=== PATIENT | female | born 1985 | race Caucasian/White ===

== ENCOUNTER 2018-02-24 00:16 | Inpatient (IN) | payer BC ==
[2018-02-24] MEDS ORDERED: Nalbuphine 10 MG/1 ML Vial IVPUSH PRN (00:54)
[2018-02-24] MEDS ORDERED: Sodium Chloride 0.9% 2.5 ML Syringe FLUSH PRN (00:54)
[2018-02-24] MEDS ORDERED: Methylergonovine 0.2 MG/1 ML Amp IM PRN ×2 (00:54→14:18)
[2018-02-24] MEDS ORDERED: Terbutaline 1 MG/ML SDV SUBCUT PRN (00:54)
[2018-02-24] MEDS ORDERED: Lidocaine 1% 50 ML MDV INJECT PRN (00:54)
[2018-02-24] MEDS ORDERED: Carboprost Tromethamine 250 MCG/1 ML Amp IM PRN (00:54)
[2018-02-24] MEDS ORDERED: Water For Irrigation,Sterile 1,000 ML Container IRR PRN (00:54)
[2018-02-24] MEDS ORDERED: Butorphanol 1 MG/ML SDV IVPUSH PRN (00:54)
[2018-02-24] MEDS ORDERED: Sodium Chloride 0.9% 10 ML Syringe FLUSH PRN (00:54)
[2018-02-24] MEDS ORDERED: Tranexamic Acid 1,000 MG in Sodium Chloride 0.9% 100 ML IV PRN (00:54)
[2018-02-24] MEDS ORDERED: Misoprostol 200 MCG Tab PO PRN (00:54)
[2018-02-24] MEDS ORDERED: Oxytocin/0.9 % Sodium Chloride 30 UNIT/500 ML BAG IV SCH ×2 (01:00)
[2018-02-24] MEDS: Lactated Ringers 1,000 ML IV SCH ×2 (01:17→13:49)
[2018-02-24] MEDS: Misoprostol 25 MCG (1/4 of 100 MCG) Tab VAG PRN ×2 (01:30→07:39)
--- NOTE | 2018-02-24 13:07 | PCM.PREANE ---
Preanesthetic Assessment - Anesthesia/Transfusion/Family Hx Anesthesia History: Prior Anesthesia Without Reaction Transfusion History: No Prior Transfusion(s) - Physical Assessment Height: 1.68 m Weight: 107.955 kg ASA Class: 1 - Lab Values: Laboratory Last Values WBC 11.17 K/uL (4.0-11.0) H 02/24/18 01:10 RBC 4.02 M/uL (4.30-5.90) L 02/24/18 01:10 Hgb 11.6 g/dL (12.0-16.0) L 02/24/18 01:10 Hct 34.7 % (36.0-46.0) L 02/24/18 01:10 MCV 86.3 fL (80.0-98.0) 02/24/18 01:10 MCH 28.9 pg (27.0-32.0) 02/24/18 01:10 MCHC 33.4 g/dL (31.0-37.0) 02/24/18 01:10 RDW Std Deviation 41.8 fl (28.0-62.0) 02/24/18 01:10 RDW Coeff of Bell 14 % (11.0-15.0) 02/24/18 01:10 Plt Count 170 K/uL (150-400) 02/24/18 01:10 MPV 10.20 fL (7.40-12.00) 02/24/18 01:10 POC Glucose 74 mg/dL (60-110) 02/24/18 09:59 Blood Type A POSITIVE 02/24/18 01:10 Antibody Screen NEGATIVE 02/24/18 01:10 - Allergies Allergies/Adverse Reactions: Allergies Allergy/AdvReac Type Severity Reaction Status Date / Time No Known Allergies Allergy Verified 09/30/16 11:51 - Acknowledgements Anesthesia Type Planned: Epidural Pt an Appropriate Candidate for the Planned Anesthesia: Yes Alternatives and Risks of Anesthesia Discussed w Pt/Guardian: Yes Pt/Guardian Understands and Agrees with Anesthesia Plan: Yes PreAnesthesia Questionnaire HEENT History: Reports: Other (See Below) Other HEENT History: wears glasses/contacts Gastrointestinal History: Reports: GERD EDUCATION NURSE History: Reports: Endometriosis, , Other (See Below) Psychiatric History: Reports: Depression Endocrine/Metabolic History: Reports: Obesity/BMI 30+ - Past Surgical History Head Surgeries/Procedures: Reports: None - SUBSTANCE USE Smoking Status *Q: Never Smoker Second Hand Smoke Exposure: No Recreational Drug Use History: No - HOME MEDS Home Medications: Home Meds Acetaminophen/oxyCODONE [Percocet 325-5 MG] 1 tab PO Q4H PRN #20 tablet [Rx] - CURRENT (IN HOUSE) MEDS Current Meds: Current Medications Butorphanol Tartrate (Stadol) 1 mg IVPUSH ASDIRECTED PRN PRN Reason: Pain Carboprost Tromethamine (Hemabate Ds) 250 mcg IM ASDIRECTED PRN PRN Reason: Post Hemorrhage Lactated Ringer's (Ringers, Lactated) 1,000 mls @ 150 mls/hr IV ASDIRECTED JULIEN Last Admin: 02/24/18 01:17 Dose: 150 mls/hr Oxytocin/Sodium Chloride (Oxytocin 30 Unit/500 Ml-Ns) 30 unit in 500 mls @ 999 mls/hr IV ASDIRECTED JULIEN Oxytocin/Sodium Chloride (Oxytocin 30 Unit/500 Ml-Ns) 30 unit in 500 mls @ 2 mls/hr IV TITRATE JULIEN; Protocol Last Titration: 02/24/18 12:12 Dose: 4 munits/min, 4 mls/hr Tranexamic Acid 1,000 mg/ (Sodium Chloride) 110 mls @ 660 mls/hr IV ONETIME PRN PRN Reason: Bleeding Lidocaine HCl (Xylocaine 1%) 50 ml INJECT .ONCE PRN PRN Reason: Laceration repair Methylergonovine Maleate (Methergine) 0.2 mg IM ASDIRECTED PRN PRN Reason: Post Hemorrhage Misoprostol (Cytotec) 200 mcg PO .ONCE PRN PRN Reason: Post Hemorrhage Misoprostol (Cytotec) 25 mcg VAG Q6H PRN PRN Reason: Cervical Ripening Last Admin: 02/24/18 07:39 Dose: 25 mcg Nalbuphine HCl (Nubain) 10 mg IVPUSH ASDIRECTED PRN PRN Reason: Pain (severe 7-10) Sodium Chloride (Saline Flush) 10 ml FLUSH ASDIRECTED PRN PRN Reason: Keep Vein Open Sodium Chloride (Saline Flush) 2.5 ml FLUSH ASDIRECTED PRN PRN Reason: Keep Vein Open Sterile Water (Sterile Water For Irrigation) 1,000 ml IRR ASDIRECTED PRN PRN Reason: delivery Terbutaline Sulfate (Brethine) 0.25 mg SUBCUT ASDIRECTED PRN PRN Reason: Tacysystole Discontinued Medications Fentanyl/Bupivacaine HCl (Sbdmzimr-Poncb-Pt 2 Mcg/Ml-0.125%) Confirm Administered Dose 100 mls @ as directed [facility] Stop: 02/24/18 12:29
--- NOTE | 2018-02-24 13:10 | PCM.PRNOTE ---
- Free Text/Narrative Note: Anes Note Patient requests epidural for L&D. Risks and methods were discussed. Sitting position. Bet prep X 3. Level L3-L4, midline approach. Local 1% lido. Single attempt with ease using CALLI technique. Cath threaded 3 cm with ease. Sterile dressing applied. Test dose 3 cc 1.5 lido with epi negative. Load: 10 cc pump solution in slow divided doses. Pump started at 8 cc/hr with 6 cc q 20 min prn bolus. Patient reports excellent analgesia. Sean Noriega CRNA
[2018-02-24] MEDS ORDERED: Bisacodyl 10 MG Supp RECTAL PRN (14:18)
[2018-02-24] MEDS ORDERED: oxyCODONE 5 MG Tab PO PRN (14:18)
[2018-02-24] MEDS ORDERED: Witch Hazel Medicated Pads 40/Jar TOP PRN (14:18)
[2018-02-24] MEDS ORDERED: Lanolin 100% Cream 7 GM Tube TOP PRN (14:18)
[2018-02-24] MEDS ORDERED: Ibuprofen 400 MG Tab PO PRN (14:18)
[2018-02-24] MEDS ORDERED: Acetaminophen 500 MG Tab PO PRN (14:18)
[2018-02-24] MEDS ORDERED: Benzocaine/Menthol 20%-0.5% Spray 78 GM Cannister TOP PRN (14:18)
[2018-02-24] MEDS ORDERED: Docusate Sodium 100 MG Cap PO PRN (14:18)
[2018-02-24] MEDS: Ibuprofen 800 MG Tab PO PRN (19:40)
--- NOTE | 2018-02-24 21:03 | OR ---
SURGEON: Monica Murphy M.D. DATE OF PROCEDURE: 02/24/2018 PREOPERATIVE DIAGNOSES: A 39-week intrauterine , gestational diabetes mellitus type A2, suspected macrosomia. POSTOPERATIVE DIAGNOSES: A 39-week intrauterine , gestational diabetes mellitus type A2, suspected macrosomia. PROCEDURE: Cytotec and Pitocin induction of labor, term spontaneous vaginal delivery. EVIDENCE SPECIALIST: CYDNEY Art. ANESTHESIA: Epidural. ESTIMATED BLOOD LOSS: Less than 300 mL. FINDINGS: Live born male, scores 9 and 9, weighing 3990 g. Placenta spontaneous, Schultze intact, with 3 vessels. Marginal cord insertion was noted. COMPLICATIONS: None known. DISPOSITION: Mother and baby are in LDRP in good condition. BRIEF HISTORY: This is a 32-year-old female, G3, P 2-0-0-2. She is a gestational diabetic, which has been well controlled with low-dose insulin in the evenings only and she has had otherwise uncomplicated care. She presents for induction of labor. Estimated weight of 4110 g. She had an unfavorable Palafox score. She received 2 doses of Cytotec. Following this, she was 3-4 cm dilated. She was started on Pitocin. She received an epidural for pain control. She was group B strep negative. Artificial rupture of membranes was performed with copious clear fluid noted and she had overall category 1 heart tones throughout labor except for a prolonged deceleration immediately following epidural, which resolved with shutting off the Pitocin and IV hydration. Pitocin was then re-initiated and the heart tones remained reassuring throughout labor. She progressed to complete. DESCRIPTION OF PROCEDURE: With the patient in dorsal lithotomy position, the patient pushed once while the head was delivered spontaneously and atraumatically over the perineum with support. With subsequent delivery of the 's shoulders and body without any difficulty, the infant was bulb suctioned by nose and mouth. The cord was clamped x2 and cut. The infant was handed to the mother in the presence of the nurse attending delivery. The is a liveborn male, scores 9 and 9, weighing 3990 g. Cord blood was collected for cord ABGs as well as routine cord blood sampling. Pitocin was initiated after delivery the to assist with delivery of the placenta, which was delivered spontaneously. Schultze intact with 3 vessels. Upon inspection of the pelvis and perineum, there were no periurethral, vaginal sidewall, cervical, rectal, or perineal lacerations. EBL was less than 300 mL. There were no known complications. Mother and baby remained in LDRP in good condition. JASON MAYERS /[id number]
[2018-02-25] MEDS: Acetaminophen 500 MG Tab PO PRN ×2 (00:57→09:15)
[2018-02-25] MEDS: Ibuprofen 800 MG Tab PO PRN ×2 (03:02→15:16)
[2018-02-25 05:56] LABS: CHLORIDE,CL 109 mmol/L (98-107); SODIUM,NA 139 mmol/L (136-145)
--- NOTE | 2018-02-25 07:36 | PCM48HPAN ---
Post Anesthesia Note - EVALUATION WITHIN 48HRS OF ANESTHETIC Vital Signs in Normal Range: Yes Patient Participated in Evaluation: Yes Respiratory Function Stable: Yes Airway Patent: Yes Cardiovascular Function Stable: Yes Hydration Status Stable: Yes Pain Control Satisfactory: Yes Nausea and Vomiting Control Satisfactory: Yes Mental Status Recovered: Yes Resp Rate: 18
--- NOTE | 2018-02-25 08:26 | PCM.PNPP ---
<Consuelo Nichols - Last Filed: 02/25/18 08:19> - General Info Date of Service: 02/25/18 Admission Dx/Problem (Free Text): 39 week intrauterine with GDM type A2 and IOL with . Subjective Update: Patient is doing well. Pain is tolerable with medication. . Lochia - WNL. Tolerating food with no n/v. Urinating. Has had a bowel movement since delivery. Ambulating. Anticipate discharge today. Functional Status: Reports: Pain Controlled, Tolerating Diet, Ambulating, Urinating - Review of Systems General: Denies: Fever, Chills HEENT: Denies: Headaches Pulmonary: Denies: Shortness of Breath, Pleuritic Chest Pain Cardiovascular: Denies: Chest Pain, Palpitations, Lightheadedness Gastrointestinal: Denies: Abdominal Pain, Nausea, Vomiting - General Info Date of Service: 02/25/18 - Patient Data Vital Signs - Most Recent: Last Vital Signs Temp 36.6 C 02/25/18 04:00 Pulse 78 02/25/18 04:00 Resp 18 02/25/18 07:36 BP 117/79 02/25/18 04:00 Pulse Ox 94 L 02/25/18 04:00 Weight - Most Recent: 107.955 kg Lab Results - Last 24 Hours: Laboratory Results - last 24 hr 02/24/18 02/24/18 02/24/18 Range/Units 09:59 13:22 14:07 Hgb (12.0-16.0) g/dL Hct (36.0-46.0) % Cord ABG pH 7.307 (7.18-7.38) Cord ABG Base Excess -5 (-10--2) Cord VBG pH 7.365 (7.25-7.45) Cord VBG Base Excess -3 (-10--2) Sodium (136-145) mmol/L Potassium (3.5-5.1) mmol/L Chloride (98-107) mmol/L Carbon Dioxide (21.0-32.0) mmol/L BUN (7.0-18.0) mg/dL Creatinine (0.6-1.0) mg/dL Est Cr Clr Drug Dosing mL/min Estimated GFR (MDRD) ml/min Glucose (74-106) mg/dL POC Glucose 74 79 (60-110) mg/dL Calcium (8.5-10.1) mg/dL 02/25/18 02/25/18 Range/Units 05:15 05:15 Hgb 11.4 L (12.0-16.0) g/dL Hct 33.8 L (36.0-46.0) % Cord ABG pH (7.18-7.38) Cord ABG Base Excess (-10--2) Cord VBG pH (7.25-7.45) Cord VBG Base Excess (-10--2) Sodium 139 (136-145) mmol/L Potassium 4.0 (3.5-5.1) mmol/L Chloride 109 H (98-107) mmol/L Carbon Dioxide 24.0 (21.0-32.0) mmol/L BUN 8 (7.0-18.0) mg/dL Creatinine 0.8 (0.6-1.0) mg/dL Est Cr Clr Drug Dosing 94.51 mL/min Estimated GFR (MDRD) > 60.0 ml/min Glucose 97 (74-106) mg/dL POC Glucose (60-110) mg/dL Calcium 8.7 (8.5-10.1) mg/dL Med Orders - Current: Current Medications Acetaminophen (Tylenol Extra Strength) 500 mg PO Q4H PRN PRN Reason: Pain Acetaminophen (Tylenol Extra Strength) 1,000 mg PO Q4H PRN PRN Reason: Pain Last Admin: 02/25/18 00:57 Dose: 1,000 mg Benzocaine/Menthol (Dermoplast Pain Relief 20%-0.5% [place]) 78 gm TOP ASDIRECTED PRN PRN Reason: Perineal Comfort Measure Bisacodyl (Dulcolax) 10 mg RECTAL .ONCE PRN PRN Reason: Constipation Docusate Sodium (Colace) 100 mg PO BID PRN PRN Reason: Constipation Emollient Ointment (Lansinoh Hpa) 0 gm TOP ASDIRECTED PRN PRN Reason: Sore Nipples Ibuprofen (Motrin) 400 mg PO Q4H PRN PRN Reason: Pain Ibuprofen (Motrin) 800 mg PO Q6H PRN PRN Reason: Pain Last Admin: 02/25/18 03:02 Dose: 800 mg Methylergonovine Maleate (Methergine) 0.2 mg IM .ONCE PRN PRN Reason: Excessive Vaginal Bleeding Oxycodone HCl (Oxycodone) 5 mg PO Q2H PRN PRN Reason: Pain Witch Annette (Tucks) 1 pad TOP ASDIRECTED PRN PRN Reason: comfort care Discontinued Medications Butorphanol Tartrate (Stadol) 1 mg IVPUSH ASDIRECTED PRN PRN Reason: Pain Carboprost Tromethamine (Hemabate Ds) 250 mcg IM ASDIRECTED PRN PRN Reason: Post Hemorrhage Lactated Ringer's (Ringers, Lactated) 1,000 mls @ 150 mls/hr IV ASDIRECTED JULIEN Last Admin: 02/24/18 13:49 Dose: 150 mls/hr Oxytocin/Sodium Chloride (Oxytocin 30 Unit/500 Ml-Ns) 30 unit in 500 mls @ 999 mls/hr IV ASDIRECTED JULIEN Oxytocin/Sodium Chloride (Oxytocin 30 Unit/500 Ml-Ns) 30 unit in 500 mls @ 2 mls/hr IV TITRATE JULIEN; Protocol Last Titration: 02/24/18 14:07 Dose: 999 munits/min, 999 mls/hr Tranexamic Acid 1,000 mg/ (Sodium Chloride) 110 mls @ 660 mls/hr IV ONETIME PRN PRN Reason: Bleeding Fentanyl/Bupivacaine HCl (Kmywbjbc-Bmuvy-Sf 2 Mcg/Ml-0.125%) Confirm Administered Dose 100 mls @ as directed EP .ST-MED ONE Stop: 02/24/18 12:29 Lidocaine HCl (Xylocaine 1%) 50 ml INJECT .ONCE PRN PRN Reason: Laceration repair Methylergonovine Maleate (Methergine) 0.2 mg IM ASDIRECTED PRN PRN Reason: Post Hemorrhage Misoprostol (Cytotec) 200 mcg PO .ONCE PRN PRN Reason: Post Hemorrhage Misoprostol (Cytotec) 25 mcg VAG Q6H PRN PRN Reason: Cervical Ripening Last Admin: 02/24/18 07:39 Dose: 25 mcg Nalbuphine HCl (Nubain) 10 mg IVPUSH ASDIRECTED PRN PRN Reason: Pain (severe 7-10) Sodium Chloride (Saline Flush) 10 ml FLUSH ASDIRECTED PRN PRN Reason: Keep Vein Open Sodium Chloride (Saline Flush) 2.5 ml FLUSH ASDIRECTED PRN PRN Reason: Keep Vein Open Sterile Water (Sterile Water For Irrigation) 1,000 ml IRR ASDIRECTED PRN PRN Reason: delivery Last Admin: 02/24/18 14:07 Dose: 1,000 ml Terbutaline Sulfate (Brethine) 0.25 mg SUBCUT ASDIRECTED PRN PRN Reason: Tacysystole - Infant Interaction Disposition, : in Room with Family Interaction: Holding Infant Feeding: Breastfed ; Nursed Well Support Person: - Recovery Exam Fundal Tone: Firm Fundal Level: At Umbilicus Fundal Placement: Midline Lochia Amount: Scant Lochia Color: Rubra/Red Episiotomy/Laceration: None Bladder Status: Voiding Urinary Elimination: Voided - Exam General: Alert, Oriented, No Acute Distress Lungs: Clear to Auscultation, Normal Respiratory Effort Cardiovascular: Regular Rate, Regular Rhythm GI/Abdominal Exam: Soft, Non-Tender Extremities: Pedal Edema (Trace) Skin: Warm, Dry Psy/Mental Status: Alert - Problem List & Annotations (1) Vaginal delivery SNOMED Code(s): 228471907 Code(s): O80 - ENCOUNTER FOR FULL-TERM UNCOMPLICATED DELIVERY Status: Acute Current Visit: Yes - Assessment Assessment:: PPD #1. 39 week IUP with GDM type A2 and suspected macrosomia. Underwent IOL with . Stable. Anticipate discharge today. - Plan Plan:: Reviewed discharge instructions. Continue PNV while . Pelvic rest for 6 weeks. Take OTC tylenol/ibuprofen as needed for pain. Call if fever greater than 101 or bleeding through a heavy pad in an hour. Reviewed post- depression symtpoms. Follow-up appointment in 6 weeks. <Monica Murphy - Last Filed: 02/25/18 08:44> - Patient Data Vital Signs - Most Recent: Last Vital Signs Temp 36.6 C 02/25/18 04:00 Pulse 78 02/25/18 04:00 Resp 18 02/25/18 07:36 BP 117/79 02/25/18 04:00 Pulse Ox 94 L 02/25/18 04:00 Lab Results - Last 24 Hours: Laboratory Results - last 24 hr 02/24/18 02/24/18 02/24/18 Range/Units 09:59 13:22 14:07 Hgb (12.0-16.0) g/dL Hct (36.0-46.0) % Cord ABG pH 7.307 (7.18-7.38) Cord ABG Base Excess -5 (-10--2) Cord VBG pH 7.365 (7.25-7.45) Cord VBG Base Excess -3 (-10--2) Sodium (136-145) mmol/L Potassium (3.5-5.1) mmol/L Chloride (98-107) mmol/L Carbon Dioxide (21.0-32.0) mmol/L BUN (7.0-18.0) mg/dL Creatinine (0.6-1.0) mg/dL Est Cr Clr Drug Dosing mL/min Estimated GFR (MDRD) ml/min Glucose (74-106) mg/dL POC Glucose 74 79 (60-110) mg/dL Calcium (8.5-10.1) mg/dL 02/25/18 02/25/18 Range/Units 05:15 05:15 Hgb 11.4 L (12.0-16.0) g/dL Hct 33.8 L (36.0-46.0) % Cord ABG pH (7.18-7.38) Cord ABG Base Excess (-10--2) Cord VBG pH (7.25-7.45) Cord VBG Base Excess (-10--2) Sodium 139 (136-145) mmol/L Potassium 4.0 (3.5-5.1) mmol/L Chloride 109 H (98-107) mmol/L Carbon Dioxide 24.0 (21.0-32.0) mmol/L BUN 8 (7.0-18.0) mg/dL Creatinine 0.8 (0.6-1.0) mg/dL Est Cr Clr Drug Dosing 94.51 mL/min Estimated GFR (MDRD) > 60.0 ml/min Glucose 97 (74-106) mg/dL POC Glucose (60-110) mg/dL Calcium 8.7 (8.5-10.1) mg/dL Med Orders - Current: Current Medications Acetaminophen (Tylenol Extra Strength) 500 mg PO Q4H PRN PRN Reason: Pain Acetaminophen (Tylenol Extra Strength) 1,000 mg PO Q4H PRN PRN Reason: Pain Last Admin: 02/25/18 00:57 Dose: 1,000 mg Benzocaine/Menthol (Dermoplast Pain Relief 20%-0.5% [place]) 78 gm TOP ASDIRECTED PRN PRN Reason: Perineal Comfort Measure Bisacodyl (Dulcolax) 10 mg RECTAL .ONCE PRN PRN Reason: Constipation Docusate Sodium (Colace) 100 mg PO BID PRN PRN Reason: Constipation Emollient Ointment (Lansinoh Hpa) 0 gm TOP ASDIRECTED PRN PRN Reason: Sore Nipples Ibuprofen (Motrin) 400 mg PO Q4H PRN PRN Reason: Pain Ibuprofen (Motrin) 800 mg PO Q6H PRN PRN Reason: Pain Last Admin: 02/25/18 03:02 Dose: 800 mg Methylergonovine Maleate (Methergine) 0.2 mg IM .ONCE PRN PRN Reason: Excessive Vaginal Bleeding Oxycodone HCl (Oxycodone) 5 mg PO Q2H PRN PRN Reason: Pain Witch Annette (Tucks) 1 pad TOP ASDIRECTED PRN PRN Reason: comfort care Discontinued Medications Butorphanol Tartrate (Stadol) 1 mg IVPUSH ASDIRECTED PRN PRN Reason: Pain Carboprost Tromethamine (Hemabate Ds) 250 mcg IM ASDIRECTED PRN PRN Reason: Post Hemorrhage Lactated Ringer's (Ringers, Lactated) 1,000 mls @ 150 mls/hr IV ASDIRECTED [facility] Last Admin: 02/24/18 13:49 Dose: 150 mls/hr Oxytocin/Sodium Chloride (Oxytocin 30 Unit/500 Ml-Ns) 30 unit in 500 mls @ 999 mls/hr IV ASDIRECTED [facility] Oxytocin/Sodium Chloride (Oxytocin 30 Unit/500 Ml-Ns) 30 unit in 500 mls @ 2 mls/hr IV TITRATE [facility]; Protocol Last Titration: 02/24/18 14:07 Dose: 999 munits/min, 999 mls/hr Tranexamic Acid 1,000 mg/ (Sodium Chloride) 110 mls @ 660 mls/hr IV ONETIME PRN PRN Reason: Bleeding Fentanyl/Bupivacaine HCl (Snetjioi-Sulms-Sl 2 Mcg/Ml-0.125%) Confirm Administered Dose 100 mls @ as directed EP .STK-MED ONE Stop: 02/24/18 12:29 Lidocaine HCl (Xylocaine 1%) 50 ml INJECT .ONCE PRN PRN Reason: Laceration repair Methylergonovine Maleate (Methergine) 0.2 mg IM ASDIRECTED PRN PRN Reason: Post Hemorrhage Misoprostol (Cytotec) 200 mcg PO .ONCE PRN PRN Reason: Post Hemorrhage Misoprostol (Cytotec) 25 mcg VAG Q6H PRN PRN Reason: Cervical Ripening Last Admin: 02/24/18 07:39 Dose: 25 mcg Nalbuphine HCl (Nubain) 10 mg IVPUSH ASDIRECTED PRN PRN Reason: Pain (severe 7-10) Sodium Chloride (Saline Flush) 10 ml FLUSH ASDIRECTED PRN PRN Reason: Keep Vein Open Sodium Chloride (Saline Flush) 2.5 ml FLUSH ASDIRECTED PRN PRN Reason: Keep Vein Open Sterile Water (Sterile Water For Irrigation) 1,000 ml IRR ASDIRECTED PRN PRN Reason: delivery Last Admin: 02/24/18 14:07 Dose: 1,000 ml Terbutaline Sulfate (Brethine) 0.25 mg SUBCUT ASDIRECTED PRN PRN Reason: Tacysystole - Problem List & Annotations (1) Vaginal delivery SNOMED Code(s): 191616740 Code(s): O80 - ENCOUNTER FOR FULL-TERM UNCOMPLICATED DELIVERY Status: Acute Current Visit: Yes - Problem List Review Problem List Initiated/Reviewed/Updated: Yes - My Orders Last 24 Hours: My Active Orders 02/24/18 14:18 Patient Status [ADT] Routine May Shower [RC] ASDIRECTED Up ad Julia [RC] ASDIRECTED Vital Signs [RC] PER UNIT ROUTINE Acetaminophen [Tylenol Extra Strength] 1,000 mg PO Q4H PRN Acetaminophen [Tylenol Extra Strength] 500 mg PO Q4H PRN Benzocaine/Menthol [Dermoplast Pain Relief 20%-0.5% [place]] 78 gm TOP ASDIRECTED PRN Bisacodyl [Dulcolax] 10 mg RECTAL .ONCE PRN Docusate Sodium [Colace] 100 mg PO BID PRN Ibuprofen [Motrin] 400 mg PO Q4H PRN Ibuprofen [Motrin] 800 mg PO Q6H PRN Lanolin [Lansinoh HPA] See Dose Instructions TOP ASDIRECTED PRN Methylergonovine [Methergine] 0.2 mg IM .ONCE PRN [place] Annette [Tucks] 1 pad TOP ASDIRECTED PRN oxyCODONE 5 mg PO Q2H PRN Assess Lochia [WOMSER] Per Unit Routine Assess Uterine Involution [WOMSER] Per Unit Routine Perineal Care [OM.PC] Per Unit Routine Peripheral IV Discontinue [OM.PC] Routine Resuscitation Status Routine 02/24/18 Dinner Regular Diet [DIET] - Plan Plan:: patient was seen and examined by me and I agree with above. Continue while . Baby has urology consult today for hypospadia. If baby is discharged, will discharge to home today. Discharge precautions reviewed, normal fasting glucose this am. Check 6 weeks 2 hour GTT
[2018-02-25 11:12] VITALS: BP 138/71
--- NOTE | 2018-02-26 07:03 | PCM.POSTAN ---
POST ANESTHESIA ASSESSMENT - MENTAL STATUS Mental Status: Alert - RESPIRATORY Respiratory Status: Respiratory Rate WNL - CARDIOVASCULAR CV Status: Pulse Rate WNL - GASTROINTESTINAL GI Status: No Symptoms
== END 2018-02-25 17:15 | disposition home or self-care (01) | DRG 560 ==
LOC: MW.OBCHECK 00:16 → MW.OB 00:19 → MW.OBCHECK 00:54 → OBSVTOIN 14:07
PROVIDERS: ADMIT Obstetrics & Gynecology; ATTEND Obstetrics & Gynecology
PROC: 10E0XZZ Delivery of Products of Conception, External Approach (ICD-10-PCS; principal; 2018-02-24)
PROC: 3E0P7VZ Introduction of Hormone into Female Reproductive, Via Natural or Artificial Opening (ICD-10-PCS; 2018-02-24)
PROC: 10907ZC Drainage of Amniotic Fluid, Therapeutic from Products of Conception, Via Natural or Artificial Opening (ICD-10-PCS; 2018-02-24)
PROC: 3E033VJ Introduction of Other Hormone into Peripheral Vein, Percutaneous Approach (ICD-10-PCS; 2018-02-24)
DX: O24.424 Gestational diabetes mellitus in childbirth, insulin controlled (principal); O36.63X0 Maternal care for excessive fetal growth, third trimester, not applicable or unspecified; Z3A.39 39 weeks gestation of pregnancy; Z37.0 Single live birth
CPT/HCPCS: 36415; 51701; 59025; 59409; 80048; 82803; 82962; 85014; 85018; 85027; 86850; 86900; 86901; A9270-GY; J2590; J7120

== ENCOUNTER 2019-03-06 00:10 | Inpatient (IN) | payer BC ==
[2019-03-06] MEDS ORDERED: Misoprostol 200 MCG Tab PO PRN (00:21)
[2019-03-06] MEDS ORDERED: Carboprost Tromethamine 250 MCG/1 ML Amp IM PRN (00:21)
[2019-03-06] MEDS ORDERED: Sodium Chloride 0.9% 10 ML Syringe FLUSH PRN (00:21)
[2019-03-06] MEDS ORDERED: Methylergonovine 0.2 MG/1 ML Amp IM PRN (00:21)
[2019-03-06] MEDS ORDERED: Lidocaine 1% 50 ML MDV INJECT PRN (00:21)
[2019-03-06] MEDS ORDERED: Butorphanol 1 MG/ML SDV IVPUSH PRN (00:21)
[2019-03-06] MEDS ORDERED: Tranexamic Acid 1,000 MG in Sodium Chloride 0.9% 100 ML IV PRN (00:21)
[2019-03-06] MEDS ORDERED: Sodium Chloride 0.9% 10 ML SDV IV PRN (00:21)
[2019-03-06] MEDS ORDERED: Sodium Chloride 0.9% 2.5 ML Syringe FLUSH PRN (00:21)
[2019-03-06] MEDS ORDERED: Nalbuphine 10 MG/1 ML Vial IVPUSH PRN (00:21)
[2019-03-06] MEDS ORDERED: Water For Irrigation,Sterile 1,000 ML Container IRR PRN (00:21)
[2019-03-06] MEDS ORDERED: Oxytocin/0.9 % Sodium Chloride 30 UNIT/500 ML BAG IV SCH (00:30)
[2019-03-06] MEDS ORDERED: Lactated Ringers 1,000 ML IV SCH (00:30)
[2019-03-06] MEDS ORDERED: Witch Hazel Medicated Pads 40/Jar TOP PRN (02:04)
[2019-03-06] MEDS ORDERED: oxyCODONE 5 MG Tab PO PRN (02:04)
[2019-03-06] MEDS ORDERED: Benzocaine/Menthol 20%-0.5% Spray 78 GM Cannister TOP PRN (02:04)
[2019-03-06] MEDS ORDERED: Lanolin 100% Cream 7 GM Tube TOP PRN (02:04)
[2019-03-06] MEDS ORDERED: Ibuprofen 400 MG Tab PO PRN (02:04)
[2019-03-06] MEDS ORDERED: Docusate Sodium 100 MG Cap PO PRN (02:04)
[2019-03-06] MEDS ORDERED: Bisacodyl 10 MG Supp RECTAL PRN (02:04)
[2019-03-06] MEDS ORDERED: Acetaminophen 500 MG Tab PO PRN (02:04)
[2019-03-06] MEDS: Ibuprofen 800 MG Tab PO PRN ×3 (03:10→18:05)
[2019-03-06] MEDS: Acetaminophen 500 MG Tab PO PRN ×2 (06:04→15:06)
--- NOTE | 2019-03-06 11:07 | PCM.PN ---
- General Info Date of Service: 03/06/19 Admission Dx/Problem (Free Text): PPD#0 vaginal delivery Functional Status: Reports: Pain Controlled - Review of Systems General: Reports: No Symptoms Genitourinary: Reports: No Symptoms, Other (normal vaginal bleeding.) - Patient Data Vitals - Most Recent: Last Vital Signs Temp 36.4 C 03/06/19 07:00 Pulse 75 03/06/19 07:00 Resp 16 03/06/19 07:00 BP 136/71 03/06/19 07:00 Pulse Ox 96 03/06/19 07:00 Weight - Most Recent: 105.233 kg Lab Results Last 24 Hours: Laboratory Results - last 24 hr 03/06/19 03/06/19 Range/Units 02:35 02:35 WBC 12.17 H (4.0-11.0) K/uL RBC 4.29 L (4.30-5.90) M/uL Hgb 11.8 L (12.0-16.0) g/dL Hct 35.6 L (36.0-46.0) % MCV 83.0 (80.0-98.0) fL MCH 27.5 (27.0-32.0) pg MCHC 33.1 (31.0-37.0) g/dL RDW Std Deviation 42.8 (28.0-62.0) fl RDW Coeff of Bell 14 (11.0-15.0) % Plt Count 154 (150-400) K/uL MPV 10.70 (7.40-12.00) fL Nucleated RBC % 0.0 /100WBC Nucleated RBCs # 0 K/uL Blood Type A POSITIVE Antibody Screen NEGATIVE Med Orders - Current: Current Medications Acetaminophen (Tylenol Extra Strength) 500 mg PO Q4H PRN PRN Reason: Pain Acetaminophen (Tylenol Extra Strength) 1,000 mg PO Q4H PRN PRN Reason: Pain Last Admin: 03/06/19 06:04 Dose: 1,000 mg Benzocaine/Menthol (Dermoplast Pain Relief 20%-0.5% [place]) 78 gm TOP ASDIRECTED PRN PRN Reason: Perineal Comfort Measure Bisacodyl (Dulcolax) 10 mg RECTAL ONETIME PRN PRN Reason: Constipation Docusate Sodium (Colace) 100 mg PO BID PRN PRN Reason: Constipation Emollient Ointment (Lansinoh Hpa) 0 gm TOP ASDIRECTED PRN PRN Reason: Sore Nipples Ibuprofen (Motrin) 400 mg PO Q4H PRN PRN Reason: Pain Ibuprofen (Motrin) 800 mg PO Q6H PRN PRN Reason: Pain Last Admin: 03/06/19 03:10 Dose: 800 mg Oxycodone HCl (Oxycodone) 5 mg PO Q2H PRN PRN Reason: Pain Witch Annette (Tucks) 1 pad TOP ASDIRECTED PRN PRN Reason: comfort care Discontinued Medications Butorphanol Tartrate (Stadol) 1 mg IVPUSH Q1H PRN PRN Reason: Pain Carboprost Tromethamine (Hemabate Ds) 250 mcg IM ASDIRECTED PRN PRN Reason: Post Hemorrhage Lactated Ringer's (Ringers, Lactated) 1,000 mls @ 150 mls/hr IV ASDIRECTED JULIEN Oxytocin/Sodium Chloride (Oxytocin 30 Unit/500 Ml-Ns) 30 unit in 500 mls @ 999 mls/hr IV TITRATE JULIEN Tranexamic Acid 1,000 mg/ (Sodium Chloride) 110 mls @ 660 mls/hr IV ONETIME PRN PRN Reason: Bleeding Lidocaine HCl (Xylocaine 1%) 50 ml INJECT ONETIME PRN PRN Reason: Laceration repair Methylergonovine Maleate (Methergine) 0.2 mg IM ASDIRECTED PRN PRN Reason: Post Hemorrhage Misoprostol (Cytotec) 200 mcg PO ONETIME PRN PRN Reason: Post Hemorrhage Nalbuphine HCl (Nubain) 10 mg IVPUSH Q1H PRN PRN Reason: Pain (severe 7-10) Sodium Chloride (Saline Flush) 10 ml FLUSH ASDIRECTED PRN PRN Reason: Keep Vein Open Sodium Chloride (Saline Flush) 2.5 ml FLUSH ASDIRECTED PRN PRN Reason: Keep Vein Open Sodium Chloride (Normal Saline) 10 ml IV ASDIRECTED PRN PRN Reason: IV Use Sterile Water (Sterile Water For Irrigation) 1,000 ml IRR ASDIRECTED PRN PRN Reason: delivery - Exam General: Alert, Oriented, Cooperative, No Acute Distress GI/Abdominal Exam: Other (Uterus firm, non-tender.) - Problem List Review Problem List Initiated/Reviewed/Updated: Yes - My Orders Last 24 Hours: My Active Orders 03/06/19 00:21 Heart Tones [RC] CONTINUOUS Non Stress Test [RC] PER UNIT ROUTINE May Shower [RC] ASDIRECTED Notify Provider [RC] PRN Up ad Julia [RC] ASDIRECTED Vaginal Exam [RC] PRN Vital Signs [RC] PER UNIT ROUTINE 03/06/19 02:04 Patient Status [ADT] Routine May Shower [RC] ASDIRECTED Up ad Julia [RC] ASDIRECTED Vital Signs [RC] PER UNIT ROUTINE Acetaminophen [Tylenol Extra Strength] 1,000 mg PO Q4H PRN Acetaminophen [Tylenol Extra Strength] 500 mg PO Q4H PRN Benzocaine/Menthol [Dermoplast Pain Relief 20%-0.5% [place]] 78 gm TOP ASDIRECTED PRN Bisacodyl [Dulcolax] 10 mg RECTAL ONETIME PRN Docusate Sodium [Colace] 100 mg PO BID PRN Ibuprofen [Motrin] 400 mg PO Q4H PRN Ibuprofen [Motrin] 800 mg PO Q6H PRN Lanolin [Lansinoh HPA] See Dose Instructions TOP ASDIRECTED PRN Witch Annette [Tucks] 1 pad TOP ASDIRECTED PRN oxyCODONE 5 mg PO Q2H PRN Assess Lochia [WOMSER] Per Unit Routine Assess Uterine Involution [WOMSER] Per Unit Routine Peripheral IV Discontinue [OM.PC] Routine Resuscitation Status Routine 03/06/19 Breakfast Regular Diet [DIET] 03/07/19 05:11 HEMOGLOBIN/HEMATOCRIT,HH [HEME] Timed - Assessment Assessment:: Good PP recovery - Plan Plan:: Continue cares
[2019-03-07 07:31] VITALS: BP 127/77
--- NOTE | 2019-03-07 10:48 | PCM.PN ---
- General Info Date of Service: 03/07/19 (PPD#1 , doing well.) Functional Status: Reports: Pain Controlled, Tolerating Diet, Ambulating - Review of Systems General: Reports: No Symptoms Gastrointestinal: Reports: No Symptoms Genitourinary: Reports: No Symptoms Musculoskeletal: Reports: No Symptoms - Patient Data Vitals - Most Recent: Last Vital Signs Temp 36.4 C 03/07/19 07:26 Pulse 74 03/07/19 07:26 Resp 16 03/07/19 07:26 BP 127/77 03/07/19 07:26 Pulse Ox 94 L 03/07/19 07:26 Weight - Most Recent: 105.233 kg Lab Results Last 24 Hours: Laboratory Results - last 24 hr 03/07/19 Range/Units 06:08 Hgb 10.9 L (12.0-16.0) g/dL Hct 33.6 L (36.0-46.0) % Med Orders - Current: Current Medications Acetaminophen (Tylenol Extra Strength) 500 mg PO Q4H PRN PRN Reason: Pain Acetaminophen (Tylenol Extra Strength) 1,000 mg PO Q4H PRN PRN Reason: Pain Last Admin: 03/06/19 15:06 Dose: 1,000 mg Benzocaine/Menthol (Dermoplast Pain Relief 20%-0.5% [place]) 78 gm TOP ASDIRECTED PRN PRN Reason: Perineal Comfort Measure Bisacodyl (Dulcolax) 10 mg RECTAL ONETIME PRN PRN Reason: Constipation Docusate Sodium (Colace) 100 mg PO BID PRN PRN Reason: Constipation Emollient Ointment (Lansinoh Hpa) 0 gm TOP ASDIRECTED PRN PRN Reason: Sore Nipples Ibuprofen (Motrin) 400 mg PO Q4H PRN PRN Reason: Pain Ibuprofen (Motrin) 800 mg PO Q6H PRN PRN Reason: Pain Last Admin: 03/06/19 18:05 Dose: 800 mg Oxycodone HCl (Oxycodone) 5 mg PO Q2H PRN PRN Reason: Pain Witch Annette (Tucks) 1 pad TOP ASDIRECTED PRN PRN Reason: comfort care Discontinued Medications Butorphanol Tartrate (Stadol) 1 mg IVPUSH Q1H PRN PRN Reason: Pain Carboprost Tromethamine (Hemabate Ds) 250 mcg IM ASDIRECTED PRN PRN Reason: Post Hemorrhage Lactated Ringer's (Ringers, Lactated) 1,000 mls @ 150 mls/hr IV ASDIRECTED JULIEN Oxytocin/Sodium Chloride (Oxytocin 30 Unit/500 Ml-Ns) 30 unit in 500 mls @ 999 mls/hr IV TITRATE JULIEN Tranexamic Acid 1,000 mg/ (Sodium Chloride) 110 mls @ 660 mls/hr IV ONETIME PRN PRN Reason: Bleeding Lidocaine HCl (Xylocaine 1%) 50 ml INJECT ONETIME PRN PRN Reason: Laceration repair Methylergonovine Maleate (Methergine) 0.2 mg IM ASDIRECTED PRN PRN Reason: Post Hemorrhage Misoprostol (Cytotec) 200 mcg PO ONETIME PRN PRN Reason: Post Hemorrhage Nalbuphine HCl (Nubain) 10 mg IVPUSH Q1H PRN PRN Reason: Pain (severe 7-10) Sodium Chloride (Saline Flush) 10 ml FLUSH ASDIRECTED PRN PRN Reason: Keep Vein Open Sodium Chloride (Saline Flush) 2.5 ml FLUSH ASDIRECTED PRN PRN Reason: Keep Vein Open Sodium Chloride (Normal Saline) 10 ml IV ASDIRECTED PRN PRN Reason: IV Use Sterile Water (Sterile Water For Irrigation) 1,000 ml IRR ASDIRECTED PRN PRN Reason: delivery - Exam General: Alert, Oriented, Cooperative, No Acute Distress Lungs: Other (breathing comfortably) GI/Abdominal Exam: Soft, Non-Tender (uterus firm, non-tender) Extremities: Non-Tender - Problem List Review Problem List Initiated/Reviewed/Updated: Yes - Assessment Assessment:: Good PP recovery - Plan Plan:: discharge to home.
[2019-03-07] MEDS: Ibuprofen 800 MG Tab PO PRN (11:27)
== END 2019-03-07 13:01 | disposition home or self-care (01) | DRG 560 ==
LOC: MW.OBCHECK 00:10 → MW.OB 00:11 → OBSVTOIN 02:04 → MW.OB 12:10
PROVIDERS: ADMIT Obstetrics & Gynecology; ATTEND Obstetrics & Gynecology
PROC: 10E0XZZ Delivery of Products of Conception, External Approach (ICD-10-PCS; principal; 2019-03-06)
DX: O48.0 Post-term pregnancy (principal); Z3A.40 40 weeks gestation of pregnancy; Z37.0 Single live birth
CPT/HCPCS: 36415; 59025; 59409; 85014; 85018; 85027; 86850; 86900; 86901; A9270-GY

== ENCOUNTER 2023-12-16 06:47 | Day surgery (SDC) | payer BC ==
[2023-12-16] MEDS: Lactated Ringers 1,000 ML IV SCH (07:00)
[2023-12-16 07:07] LABS: HEMATOCRIT 41.3 % (37.0-47.0); HEMOGLOBIN 13.8 g/dL (12.0-16.0); MEAN CORPUSCULAR HEMOGLOBIN 27.5 pg (28.0-32.0); MEAN CORPUSCULAR HGB CONC 33.4 g/dL (32.0-36.0); MEAN CORPUSCULAR VOLUME 82.3 fL (83.0-99.0); MEAN PLATELET VOLUME 9.1 fL (9.4-12.3); PLATELET COUNT,PLT 227 K/uL (150-400); RED BLOOD CELL COUNT 5.02 M/uL (4.10-5.30); WHITE BLOOD CELL COUNT,WBC 7.48 K/uL (3.9-11.3)
[2023-12-16] MEDS ORDERED: Bupivacaine 0.5% 30 ML SDV ONE (07:24)
[2023-12-16] MEDS ORDERED: Bupivacaine 0.25% 30 ML SDV ONE ×2 (07:25→09:58)
[2023-12-16] MEDS ORDERED: fentaNYL 250 MCG/5 ML SDV ONE (07:37)
[2023-12-16] MEDS ORDERED: Propofol 200 MG/20 ML SDV ONE (07:37)
[2023-12-16] MEDS ORDERED: propofoL 50 ML ONE ×4 (07:37→09:34)
[2023-12-16] MEDS ORDERED: Albuterol 0.083% 2.5 MG/3 ML Neb Soln NEB PRN (07:40)
[2023-12-16] MEDS ORDERED: HYDROmorphone 1 MG/ML Syringe IVPUSH PRN (07:40)
[2023-12-16] MEDS ORDERED: fentaNYL 50 MCG/ML SDV IVPUSH PRN (07:40)
[2023-12-16] MEDS ORDERED: Ondansetron 4 MG/2 ML SDV IVPUSH PRN (07:40)
[2023-12-16] MEDS ORDERED: Dexamethasone 4 MG/ML 5 ML MDV ONE (07:40)
[2023-12-16] MEDS ORDERED: Naloxone 0.4 MG/ML SDV IVPUSH PRN (07:40)
[2023-12-16] MEDS ORDERED: dexmedeTOMIDine HCl 200 MCG/2 ML SDV ONE (07:40)
[2023-12-16] MEDS ORDERED: droPERidol 5 MG/2 ML SDV IVPUSH PRN (07:40)
[2023-12-16] MEDS ORDERED: Rocuronium Bromide 50 MG/5 ML Syringe ONE ×2 (07:40→09:20)
[2023-12-16] MEDS ORDERED: Metoclopramide 10 MG/2 ML SDV IVPUSH PRN (07:40)
[2023-12-16] MEDS ORDERED: Water For Injection, Sterile 20 ML ONE (07:40)
[2023-12-16] MEDS ORDERED: Morphine 2 MG/ML SYRINGE IVPUSH PRN (07:40)
[2023-12-16] MEDS ORDERED: ceFAZolin 2 GM Vial ONE (08:07)
[2023-12-16] MEDS ORDERED: metroNIDAZOLE/Normal Saline 100 ML ONE (08:07)
[2023-12-16] MEDS ORDERED: Ketamine 500 mg/10 ML MDV ONE (08:37)
[2023-12-16] MEDS ORDERED: Magnesium Sulfate (4.06 MEQ/ML) 5 GM/10 ML SDV ONE (08:38)
[2023-12-16] MEDS ORDERED: Ketorolac 30 MG/ML SDV ONE (08:54)
[2023-12-16] MEDS ORDERED: Sugammadex Sodium 200 MG/2 ML VIAL IV ONE (08:54)
[2023-12-16] MEDS ORDERED: Tranexamic Acid 1,000 MG/10 ML Vial ONE (09:51)
[2023-12-16] MEDS ORDERED: Bupivacaine 0.5%/EPINEPHrine 1:200,000 30 ML SDV ONE (09:58)
[2023-12-16] MEDS: Ketorolac 30 MG/ML SDV IVPUSH ONE (12:30)
[2023-12-16 14:11] VITALS: BP 120/77; PULSE 98
== END 2023-12-16 13:30 | disposition home or self-care (01) ==
LOC: MW.SDS 06:47
PROVIDERS: ATTEND Obstetrics & Gynecology
DX: K42.0 Umbilical hernia with obstruction, without gangrene (principal); K42.9 Umbilical hernia without obstruction or gangrene; N80.123 Deep endometriosis of bilateral ovaries; N80.9 Endometriosis, unspecified; M62.08 Separation of muscle (nontraumatic), other site; E66.01 Morbid (severe) obesity due to excess calories; Z68.41 Body mass index [BMI] 40.0-44.9, adult
CPT/HCPCS: 36415; 49592; 58662; 84703; 85027; J0131; J0665; J0690; J1100; J1885; J2704; J3010; J3475; J3490; J7030; J7120